=== PATIENT | male | born 1990 | race Caucasian/White ===

== ENCOUNTER 2018-04-05 15:48 | Emergency (ER) | payer SELFPAY ==
[~2018-04-05] VITALS: Ht 182.9 cm; Wt 100.0 kg
[~2018-04-05 15:48] MED LIST: NOCURR
[2018-04-05 17:40] VITALS: BP 148/90
[2018-04-05] MEDS ORDERED: KETOROLAC TROMETHAMINE 60 MG/2 ML VIAL IM ONE (17:45)
== END 2018-04-05 18:19 | disposition home or self-care (01) ==
LOC: EMS 15:48
DX: S20.211A Contusion of right front wall of thorax, initial encounter (principal); F17.210 Nicotine dependence, cigarettes, uncomplicated; W01.198A Fall on same level from slipping, tripping and stumbling with subsequent striking against other object, initial encounter; Y93.E1 Activity, personal bathing and showering; Y92.091 Bathroom in other non-institutional residence as the place of occurrence of the external cause; Y99.8 Other external cause status
CPT/HCPCS: 71045; 96372; 99283; 99406; J1885